=== PATIENT | female | born 1955 | race Caucasian/White ===

== ENCOUNTER 2016-10-30 22:06 | Emergency (ER) | payer SELFPAY ==
[~2016-10-30] VITALS: Ht 162.6 cm; Wt 80.0 kg
[2016-10-31 00:04] VITALS: BP 154/80
== END 2016-10-31 00:08 | disposition home or self-care (01) ==
LOC: EMS 22:08
DX: S43.005A Unspecified dislocation of left shoulder joint, initial encounter (principal); M79.5 Residual foreign body in soft tissue; F10.229 Alcohol dependence with intoxication, unspecified; Y90.4 Blood alcohol level of 80-99 mg/100 ml; Z88.0 Allergy status to penicillin; W01.0XXA Fall on same level from slipping, tripping and stumbling without subsequent striking against object, initial encounter; Y93.89 Activity, other specified; Y92.89 Other specified places as the place of occurrence of the external cause; Y99.8 Other external cause status
CPT/HCPCS: 23650; 29240; 36415; 73030; 99285; G0480